=== PATIENT | female | born 1975 | race Hispanic/Latino ===

== ENCOUNTER 2019-09-13 12:26 | Inpatient (IN) | payer SELFPAY ==
[2019-09-13 13:07] LABS: #Basophils 0.1 thou/uL (0.0-0.2); #Eosinphils 0.2 thou/uL (0.0-0.7); #Lymphocytes 2.2 thou/uL (1.20-3.40); #Monocytes 0.9 thou/uL (0.11-0.59); #Neutrophils 6.8 thou/uL (1.40-6.50); %Eosinophils 2.3 % (0.0-10.0); %Lymphocytes 21.6 % (21.0-51.0); %Monocytes 8.6 % (0.0-10.0); %Neutrophils 66.5 % (42.0-75.0); Hemoglobin 7.4 g/dL (12.0-16.0); Mean Corpuscular HGB CONC 33.3 g/dL (32.0-36.0); Mean Corpuscular Hemoglobin 30.3 pg (27.0-31.0); Mean Corpuscular Volume 91.1 fL (78.0-98.0); Mean Platelet Volume 6.5 fL (7.4-10.4); Platelet Count 495 thou/uL (130-400); Red Blood Cell (RBC) Count 2.43 mill/uL (4.20-5.40); White Blood Cell (WBC) Count 10.2 thou/uL (4.8-10.8)
[2019-09-13] MEDS ORDERED: Ondansetron PF 4 MG/2 ML Vial ONE (13:21)
[2019-09-13] MEDS ORDERED: Morphine 4 MG/ML VIAL ONE (13:22)
[2019-09-13 13:29] LABS: ALT (SGPT) 24 U/L (8-55); AST (SGOT) 21 U/L (5-34); Albumin 4.2 g/dL (3.5-5.0); Alkaline Phosphatase 111 U/L (40-110); Anion Gap 12 mmol/L (10-20); BUN (Urea Nitrogen) 7 mg/dL (7.0-18.7); Bilirubin, Total 0.6 mg/dL (0.2-1.2); Calc. Creatinine Clearance 0 mL/min (70-130); Calcium 9.2 mg/dL (7.8-10.44); Carbon Dioxide 27 mmol/L (22-29); Chloride 103 mmol/L (98-107); Estimated GFR-MDRD 77; Globulin 3.1 g/dL (2.4-3.5); Glucose 95 mg/dL (70-105); Lipase 7 U/L (8-78); Potassium 4.1 mmol/L (3.5-5.1); Protein, Total 7.3 g/dL (6.0-8.3); Sodium 138 mmol/L (136-145)
--- NOTE | 2019-09-13 13:41 | PDOC.FPRHP ---
- History of Present Illness Chief Complaint: Bleeding rectum and dizziness History of Present Illness: Ms. Her is a previously healty 44 yo , Frisian-speaking only, female who presents to the ED for 25 days of bright red blood per rectum and known anemia. She has seen several doctors for this is in the past month in [place] and had colonoscopy scheduled, however for financial reasons was unable to have it done. She states that one of the doctors she saw did an X-ray and it showed "retained stool" and for that she was prescribed Amoxicillin and Prednisone. Today she felt dizzy in the shower and fell. She states she has been dizzy for the past three days and has had palpitations and shortness of breath. She states she has no other known medical conditions. ED Course: Morphine, Zofran and 1L NS. Type and screened for blood products - Allergies/Adverse Reactions Allergies Allergy/AdvReac Type Severity Reaction Status Date / Time No Known Allergies Allergy Verified 09/13/19 16:09 - History PMHx: Asthma PSHx: None FHx: Father - , colon cancer (dx age 65) Social: Denies tobacco, alcohol, and illicit drug use. - Review of Systems General: reports: fatigue. denies: fever/chills, weight/appetite/sleep changes Eyes: denies: eye pain, vision changes ENT: denies: nasal congestion, rhinorrhea Respiratory: reports: shortness of breath. denies: cough, congestion Cardiovascular: reports: palpitation. denies: chest pain, edema Gastrointestinal: reports: nausea, GI bleeding. denies: vomiting, diarrhea, constipation, abdominal pain Genitourinary: denies: incontinence, dysuria, polyuria Skin: denies: rashes, lesions Musculoskeletal: denies: pain, tenderness Neurological: reports: weakness. denies: numbness, syncope Psychological: denies: anxiety, depression - Vital signs BP: 121/88 HR:100 RR: 17 Tmax: 98.6 Pox: 96% on RA Wt: 86.2kg - Physical Exam Constitutional: NAD, awake, alert and oriented, well developed HEENT: normocephalic and atraumatic, PERRLA, EOMI, conjunctiva clear, grossly normal vision, grossly normal hearing, MMM -HEENT: pale skin and conjunctiva Neck: supple, FROM, trachea midline Chest: no-tender to palpation Heart: normal S1/S2, no murmurs/rubs/gallops, pulses present, no edema -Heart: tachycardic Lungs: CTAB, no respiratory distress, good air movement, no rales/rhonchi, no wheezing Abdomen: soft, non-tender, bowel sounds present -Abdomen: Rectal exam reveals multiple small to medium sized hemorrhoids, no gross bleeding. Disproportionately tender to palpation. Musculoskeletal: normal structure, normal tone Neurological: no focal deficit, CN II-XII intact, normal sensation Skin: no rash/lesions, good turgor Heme/Lymphatic: no unusual bruising or bleeding, no purpura, no petechia, no LAD Psychiatric: normal mood and affect, good judgment and insight, intact recent and remote memory FMR H&P: Results - Labs Result Diagrams: 09/13/19 12:49 09/13/19 12:49 Lab results: WBC 10.2 thou/uL (4.8-10.8) 09/13/19 12:49 Hgb 7.4 g/dL (12.0-16.0) L 09/13/19 12:49 Hct 22.1 % (36.0-47.0) L 09/13/19 12:49 MCV 91.1 fL (78.0-98.0) 09/13/19 12:49 Plt Count 495 thou/uL (130-400) H 09/13/19 12:49 Neutrophils % 66.5 % (42.0-75.0) 09/13/19 12:49 Sodium 138 mmol/L (136-145) 09/13/19 12:49 Potassium 4.1 mmol/L (3.5-5.1) 09/13/19 12:49 Chloride 103 mmol/L (98-107) 09/13/19 12:49 Carbon Dioxide 27 mmol/L (22-29) 09/13/19 12:49 BUN 7 mg/dL (7.0-18.7) 09/13/19 12:49 Creatinine 0.81 mg/dL (0.6-1.1) 09/13/19 12:49 Glucose 95 mg/dL (70-105) 09/13/19 12:49 Calcium 9.2 mg/dL (7.8-10.44) 09/13/19 12:49 Total Bilirubin 0.6 mg/dL (0.2-1.2) 09/13/19 12:49 AST 21 U/L (5-34) 09/13/19 12:49 ALT 24 U/L (8-55) 09/13/19 12:49 Alkaline Phosphatase 111 U/L (40-110) H 09/13/19 12:49 Serum Total Protein 7.3 g/dL (6.0-8.3) 09/13/19 12:49 Albumin 4.2 g/dL (3.5-5.0) 09/13/19 12:49 Lipase 7 U/L (8-78) L 09/13/19 12:49 FMR H&P: A/P - Problem List (1) Symptomatic anemia Current Visit: Yes Status: Acute Code(s): D64.9 - ANEMIA, UNSPECIFIED (2) Hemorrhoids Current Visit: Yes Status: Acute Code(s): K64.9 - UNSPECIFIED HEMORRHOIDS - Plan Symptomatic anemia 2/2 to lower GI bleed - Hb 7.4. History of profuse bleeding, tachycardia, dyspnea, and palpitations. Recommend 1u PRBC, however she has declined. Will monitor and reevaluate CBC in the AM. Will discuss transfusion again in the morning. - Iron studies and coags pending - Will continue IV fluids, LR @ 125 - At this time it appears that her bleeding source is the hemorrhoids. She does not appear to have an upper GI bleed, as she has not had melenic stools. She does not appear to have diverticulitis as her abdomen is non-tender, normal WBC , and normal appetite / bowel movements. - Was scheduled for colonoscopy, and fam hx positive for colon cancer. Will consult GI , appreciate recommendations. Thrombosed hemorrhoid - Exquisitely tender external hemorrhoids. C/o BRB per rectum. Had hemorrhoids in the past with . - Will consult Gen Surg for management. Disposition/LOS: Dispo: Stable VTE: SCDs Diet: clear liquid Code: Full FMR H&P: Upper Level - Pertinent history 44 yo F here with complaint of falling in the shower this morning. She has had 1 month of BRBPR. She was seen by her PCP in [place] who got her scheduled with GI for colonoscopy there, however she did not follow up due to financial concerns. She was also given topical steroids for hemorrhoids. For the past 3 days she has experienced increasing dizziness until today when she had a syncopal episode. At some point she was given oral prednisone and amoxicillin for an unknown dx. In the ER she was found to have a Hb of 7.4. Pulse was in the 90s, BP was WNL. PMHx Asthma Surgical Hx none Social Hx No etoh, tobacco, or drugs. - Pertinent findings See applications intern note for full ROS, PE, vitals, and labs ROS General Denies fever or chills CV Complain of syncope and palpitation Resp Denies cough, wheeze, or increased work of breathing. GI Complains of BRBPR and rectal pain denies increased frequency or dysuria Neuro denies numbness or weakness PE General A&O x4, NAD HEENT NCAT CV RRR, no murmur Resp CTA b/l Abd Non tender, no guarding, no distension Rectal Multiple exquisitely tender external hemorrhoids Extremities no edema, equal pedal pulses Neuro no focal deficits, CN II-XII intact - Plan Date/Time: 09/13/19 0306 I, Oliver Lockhart DO, have evaluated this patient and agree with findings/plan as outlined by applications intern resident. Pertinent changes/additions are listed here. 1.Symptomatic anemia secondary to lower GI bleed -Given physical exam, it seems most likely that she has blood loss from external hemorrhoids that are now thrombosed. At this time it seems reasonable to give 1u PRBC, however pt declines transfusion. -Will continue IV fluid bolus, discuss transfusion again in the morning -Monitor CMP -Though she does have a GI consult pending outpt, will have general surgery see pt to evaluate for possible hemorrhoidectomy -Check coags 2.Thrombosed hemorrhoid -As above Diet Regular Code Full PPX SCD Addendum - Attending - Attending Attestation Date/Time: 09/13/19 4334 I personally evaluated the patient and discussed the management with Dr. Camp I agree with the History, Examination, Assessment and Plan documented above with any addition or exceptions noted below 44 yo SSO female presents to ER with symptomatic anemia rectal bleeding for last several months. Patient interviewed with assistance of plastics engineering teacher.Patient previously evaluated by PCP from [facility] [place] and recommended colonoscopy. Patient also seen at [facility] and hemorrhoid cream prescribed. Patient also with significant heavy menses most likely contributing to her anemia. Patient relates several years of heavy menses most recent LMP Sep 02 had 5 days heavy flow wearing two pads at a time and changing pads as often as every 2 hours. PMHX Father with Colon CA patient with asthma in the past exam pulse 90s alert NAD abdomen slight tender LLQ. Not able to perform rectal exam secondary extreme pain no ext hemorrhoids appreciated no bleeding seen. Patient declined rbc transfusion discussed if further decline or symptoms she would benefit from receiving blood.
[2019-09-13] MEDS ORDERED: Ondansetron ODT 4 MG TAB PO PRN (14:46)
[2019-09-13] MEDS ORDERED: Bisacodyl 5 MG TAB PO PRN (14:46)
[2019-09-13 15:07] LABS: Bilirubin Negative (Negative); Blood, Urine Negative (Negative); Clarity Clear (Clear); Glucose, Urine (Dipstick) Normal (Negative); Leukocyte Negative Leu/uL (Negative); Nitrite Negative (Negative); Protein, Urine (Dipstick) Negative (Neg-Trace); Urobilinogen Normal mg/dL (Less than 2)
[2019-09-13] MEDS ORDERED: Morphine 2 MG/ML SYRINGE SLOW IVP PRN (15:38)
[2019-09-13 15:44] LABS: Pregnancy Test - Urine (BHCG) Negative (Negative); Pregu Control Background? CLEAR/WHITE (CLR/WHITE); Pregu Control Bar Appear? YES (CONTROL BAR); Specific Gravity 1.008 (1.002-1.036)
[2019-09-13] MEDS: Lactated Ringer's 1,000 ML IV SCH (15:56)
[2019-09-13] MEDS: Acetaminophen 325 MG TAB PO PRN ×2 (15:57→23:00)
[2019-09-13] MEDS: traMADol HCl 50 MG TAB PO PRN (16:00)
[2019-09-13 16:19] VITALS: BMI 35.1
[2019-09-13] MEDS ORDERED: GoLYTELY 4,000 ml Bottle PO SCH (17:45)
[2019-09-13 18:11] LABS: INR-International Normal Ratio 1.1; PTT 28.6 SEC (22.9-36.1); Prothrombin Time 14.3 SEC (12.0-14.7)
[2019-09-13 21:55] LABS: Hemoglobin 6.3 g/dL (12.0-16.0); Mean Corpuscular HGB CONC 32.7 g/dL (32.0-36.0); Mean Corpuscular Volume 91.9 fL (78.0-98.0); Mean Platelet Volume 6.4 fL (7.4-10.4); Platelet Count 419 thou/uL (130-400); RBC Distribution Width 13.2 % (11.5-14.5); Red Blood Cell (RBC) Count 2.09 mill/uL (4.20-5.40); White Blood Cell (WBC) Count 8.8 thou/uL (4.8-10.8)
[2019-09-14] MEDS: Lactated Ringer's 1,000 ML IV SCH ×4 (00:08→20:25)
--- NOTE | 2019-09-14 01:27 | CON ---
DATE OF CONSULTATION: 09/13/2019 CHIEF COMPLAINT: Blood in the stool and weakness. HISTORY OF PRESENT ILLNESS: Ms. Her is a 44-year-old woman, who presented to the emergency room with hematochezia and anemia. She had previously passed out associated with this. She has had bleeding over the last few months and has about one bowel movement per day. She has to strain a lot at the stools, but they are not hard or runny. She has red blood that turns a water red with every bowel movement. She also has had pretty heavy menstrual periods and has 5-day periods once per month. She has had no nausea or vomiting with this. No obvious diarrhea, but has had some mild constipation with straining at stools. She has had some left lower quadrant pressure type pain intermittently as well. She has more severe pain at the anal opening with passing stools. This pain lasts for minutes or longer after bowel movements. PAST MEDICAL HISTORY: Asthma. PAST SURGICAL HISTORY: Negative. FAMILY HISTORY: Her father was diagnosed with colon cancer around age 65. SOCIAL HISTORY: No alcohol, tobacco, or drugs. ALLERGIES: NO KNOWN DRUG ALLERGIES. MEDICATIONS: Prior to admission, none. REVIEW OF SYSTEMS: Negative x10 systems reviewed, except as stated in the history of present illness. PHYSICAL EXAMINATION: VITAL SIGNS: Temperature 97.8, pulse 78, blood pressure 114/71. GENERAL: She is in no acute distress. Alert and oriented x3. HEENT: Eyes have no scleral icterus. Oropharynx is clear without lesions. No cervical or supraclavicular lymphadenopathy. She is very pale. LUNGS: Clear to auscultation bilaterally. HEART: Regular rate and rhythm without murmur. ABDOMEN: Soft, nontender, and nondistended. Bowel sounds are present. EXTREMITIES: No lower extremity edema. RECTAL: She has severe pain just with spreading the gluteal cleft apart. She has a few skin tags in the area, but no thrombosed hemorrhoid. She likely has an anal fissure in this area; however, I cannot directly visualize one. Nothing else would cause this type of symptom likely on exam. I did not do full digital exam in anticipation that I will be doing a sedated exam tomorrow. She was brought to tears with just spreading the gluteal cleft apart. She has no sign of abscess in the area. LABORATORY DATA: White blood cell count 10.2, hemoglobin 7.4, MCV 91, platelets 495. Creatinine 0.81. Bilirubin 0.6, AST 21, ALT 24, alkaline phosphatase 111, albumin 4.2, lipase 7. IMPRESSION: 1. Hematochezia with chronic bleeding from the rectum associated with painful bowel movements. This will require colonoscopy to investigate further. 2. Family history of colon cancer in her father. 3. Anal fissure. RECOMMENDATIONS: 1. Plan colonoscopy for tomorrow. 2. If fissures confirmed by exam after receiving propofol tomorrow, then to be treated with MiraLAX daily and nitroglycerin ointment twice daily. 3. Of note, she did see a telephone engineer recently and was told that she had to lose weight prior to scheduling the colonoscopy. I suspect there is some issue with language barrier in this instance and it is more likely that it was a cost issue as the patient is uninsured. Either way, we will plan to proceed with colonoscopy tomorrow. Job ID: [id number]
[2019-09-14] MEDS: traMADol HCl 50 MG TAB PO PRN ×3 (03:56→18:15)
--- NOTE | 2019-09-14 05:46 | PDOC.FM ---
- Subjective Subjective: Mrs. Her was resting comfortably in her bed at the time of evaluation. She is Mohawk-speaking only, and admitted to mild dizziness during ambulation and continued rectal pain during the evening, with bright red blood in her stool x2. Otherwise, she was asymptomatic and denied chest pain, shortness of breath or N/V. - Objective Vital Signs & Weight: Vital Signs (12 hours) Temp Pulse Pulse Resp BP BP Pulse Ox 09/14/19 04:08 97.7 F 80 18 111/72 98 09/14/19 02:50 97.9 F 83 16 110/72 99 09/14/19 01:25 106/71 09/14/19 00:21 98.5 F 81 16 94/61 98 09/13/19 23:58 98.3 F 90 16 102/69 98 09/13/19 23:41 98.0 F 98 20 109/62 100 09/13/19 20:00 98 09/13/19 19:06 98.0 F 78 16 104/68 98 Weight Weight 84.368 kg I&O: 09/12/19 09/13/19 09/14/19 07:59 06:59 06:59 Intake Total 350 Balance 350 Result Diagrams: 09/14/19 06:38 09/14/19 06:38 Phys Exam - Physical Examination Constitutional: NAD HEENT: PERRLA, sclera anicteric, oral pharynx no lesions Neck: no nodes, supple, full ROM Respiratory: no wheezing, no rales, no rhonchi, clear to auscultation bilateral Cardiovascular: RRR, no rub Gastrointestinal: soft, non-tender, no distention Several skin tags noted in perirectal area, no signs of active bleeding Musculoskeletal: no edema, pulses present Neurological: non-focal, moves all 4 limbs Lymphatic: no nodes Psychiatric: normal affect Deviation from normal: Pallor Dx/Plan - Plan Plan: 1. Symptomatic Anemia, likely 2/2 to Lower GI Bleed -Inability to obtain appropriate care in light of known GI bleed is concerning -H.9 s/p 1UPRBCs -Iron Studies: Pending -PT: 14.3 / APTT: 28.6 / INR: 1.1 -LR @ 125 ml/hr -GI Consult: Colonoscopy planned for 09/14 2. Thrombosed External Hemorrhoid vs. Anal Fissure -Exquisitely tender w/ BRBRP -Previously had hemorrhoids in the past with -GI: Consulted, currently following - likely anal fissure -Consider violeta-rectal US if colonoscopy inconclusive in order to r/o violeta- rectal abscess 3. AUB -Patient complains of extremely heavy menstrual periods that last 5 days - may be contributing to current anemia -Consider TVUS to evaluate further evaluate Code: Full Diet: Clear Liquid Activity: Ambulate w/ Assist DVT PPx: Not Required Dispo: Patient is currently stable on Medical Floor. Await additional recommendations from GI following colonoscopy. Expected LOS > 48H
[2019-09-14 06:49] LABS: #Eosinphils 0.2 thou/uL (0.0-0.7); #Lymphocytes 2.2 thou/uL (1.20-3.40); #Monocytes 0.6 thou/uL (0.11-0.59); #Neutrophils 5.1 thou/uL (1.40-6.50); %Basophils 0.4 % (0.0-1.0); %Eosinophils 2.6 % (0.0-10.0); %Lymphocytes 26.9 % (21.0-51.0); %Monocytes 7.4 % (0.0-10.0); %Neutrophils 62.8 % (42.0-75.0); Hemoglobin 7.9 g/dL (12.0-16.0); Mean Corpuscular HGB CONC 33.1 g/dL (32.0-36.0); Mean Corpuscular Hemoglobin 30.1 pg (27.0-31.0); Mean Corpuscular Volume 90.8 fL (78.0-98.0); Mean Platelet Volume 6.6 fL (7.4-10.4); Platelet Count 419 thou/uL (130-400); RBC Distribution Width 13.4 % (11.5-14.5); Red Blood Cell (RBC) Count 2.62 mill/uL (4.20-5.40); White Blood Cell (WBC) Count 8.1 thou/uL (4.8-10.8)
[2019-09-14 07:07] LABS: ALT (SGPT) 19 U/L (8-55); AST (SGOT) 15 U/L (5-34); Albumin 3.7 g/dL (3.5-5.0); Alkaline Phosphatase 98 U/L (40-110); Anion Gap 12 mmol/L (10-20); BUN (Urea Nitrogen) 4 mg/dL (7.0-18.7); Bilirubin, Total 0.7 mg/dL (0.2-1.2); Calc. Creatinine Clearance 133 mL/min (70-130); Calcium 8.3 mg/dL (7.8-10.44); Carbon Dioxide 26 mmol/L (22-29); Chloride 102 mmol/L (98-107); Estimated GFR-MDRD 88; Globulin 2.6 g/dL (2.4-3.5); Glucose 102 mg/dL (70-105); Potassium 3.7 mmol/L (3.5-5.1); Protein, Total 6.3 g/dL (6.0-8.3); Sodium 136 mmol/L (136-145)
[2019-09-14] MEDS ORDERED: Polyethylene Glycol 3350 17 GM Packet PO SCH (12:15)
--- NOTE | 2019-09-14 14:04 | OP ---
DATE OF PROCEDURE: 09/14/2019 PROCEDURE PERFORMED: Colonoscopy. PREOPERATIVE DIAGNOSES: 1. Hematochezia. 2. Anal pain. 3. Iron-deficiency anemia. DESCRIPTION OF PROCEDURE: Informed consent was obtained from the patient. She was sedated with total intravenous anesthesia. The rectal exam was performed and revealed a posterior anal fissure and skin tag. The fissure was shallow. The colonoscope was advanced to the terminal ileum without difficulty. The mucosa of the terminal ileum was normal. The ileocecal valve and appendiceal orifice were clearly identified. The preparation quality was excellent. The colonic mucosa was normal throughout. Retroflexed views in the rectum were normal. IMPRESSION: 1. Posterior anal fissure and skin tag. This is the source for her hematochezia and anal pain. 2. Otherwise normal colonoscopy to the terminal ileum. 3. Her anemia is most likely secondary to menorrhagia. RECOMMENDATIONS: 1. MiraLAX 17 g daily. 2. Nitroglycerin ointment twice daily for a month. 3. Repeat colonoscopy in 5 years due to family history of colon cancer in her father. 4. Follow up in GI Clinic in 1 month. 5. Iron supplementation. 6. I will add her on for EGD for tomorrow to complete the GI evaluation in light of her severe iron-deficiency anemia and potential need for a gynecological followup. Job ID: [id number]
[2019-09-14] MEDS ORDERED: PROPOFOL 200 MG/20 ML VIAL ONE (14:38)
--- NOTE | 2019-09-14 15:14 | PRG ---
DATE OF SERVICE: 09/14/2019 Ms. Her has been admitted with a significant lower GI bleed. Her admission hemoglobin was 6.3, and she was transfused to a 7.4. She has been seen by the GI Service who would take her for colonoscopy later today. Job ID: [id number]
--- NOTE | 2019-09-14 16:23 | EKG ---
Test Reason : Blood Pressure : / mmHG Vent. Rate : 085 BPM Atrial Rate : 085 BPM P-R Int : 142 ms QRS Dur : 082 ms QT Int : 380 ms P-R-T Axes : 048 017 039 degrees QTc Int : 452 ms Normal sinus rhythm Normal ECG No previous ECGs available Confirmed by DR. Carlos A WILDE ([id number]) on 09/14/2019 4:23:08 PM Referred By: STEVEN Confirmed By:DR. Carlos A WILDE
[2019-09-15] MEDS: Lactated Ringer's 1,000 ML IV SCH ×2 (03:49→17:43)
[2019-09-15] MEDS: traMADol HCl 50 MG TAB PO PRN ×3 (05:00→22:14)
--- NOTE | 2019-09-15 06:12 | PDOC.FM ---
- Subjective Subjective: Ms. Her denied any overnight events such as chest pain, shortness of breath , headaches or N/V. However, she did have an additional stool that was grossly bloody and continues to have extreme pain in her violeta-rectal region. - Objective Vital Signs & Weight: Vital Signs (12 hours) Temp Pulse Resp BP Pulse Ox 09/15/19 04:00 98 F 100 20 146/82 H 99 09/14/19 20:26 98.2 F 75 18 130/88 97 09/14/19 20:00 97 Weight Admit Weight 84.368 kg Weight 84.368 kg I&O: 09/13/19 09/14/19 09/15/19 06:59 06:59 06:59 Intake Total 5475 1979 Balance 5475 1979 Result Diagrams: 09/15/19 06:15 09/14/19 06:38 Phys Exam - Physical Examination Constitutional: NAD HEENT: PERRLA, moist MMs, sclera anicteric, oral pharynx no lesions Neck: no nodes, full ROM Respiratory: no wheezing, no rales, no rhonchi, clear to auscultation bilateral Cardiovascular: RRR, no significant murmur, no rub Gastrointestinal: soft, non-tender, no distention No visible fissures. Extreme TTP at external hemorrhoid at 12 o'clock. Musculoskeletal: no edema, pulses present Neurological: non-focal, moves all 4 limbs Lymphatic: no nodes Psychiatric: normal affect Skin: no rash Dx/Plan - Plan Plan: 1. Symptomatic Anemia, likely 2/2 to Lower GI Bleed and AUB -Inability to obtain appropriate care in light of known GI bleed is concerning -H.8 on 09/14 -Iron Studies: Pending -PT: 14.3 / APTT: 28.6 / INR: 1.1 -LR @ 125 ml/hr -GI Consult: Colonoscopy on 09/14 revealed only anal fissures 2. Anal Fissure / Thrombosed External Hemorrhoid -Exquisitely tender violeta-rectal area w/ BRBRP -Previously had hemorrhoids with past -GI: Consulted, currently following - likely anal fissure -Colonoscopy performed on 09/14 - GI noted bleeding likely 2/2 to anal fissures -Consider adjunctive methods for bowel prep and pain control -Consider Surgery consult for suspicion of thrombosed hemorrhoid 3. AUB -Patient complains of extremely heavy menstrual periods that last 5 days - may be contributing to current anemia -Consider TVUS to evaluate further evaluate -Will need f/u in outpatient setting Code: Full Diet: Clear Liquid Activity: Ambulate w/ Assist DVT PPx: Not Required Dispo: Patient is currently stable on Medical Floor. Lack of insurance continues to be problematic. Expected LOS < 24H Addendum - Attending - Attending Attestation Date/Time: 09/15/19 4727 I personally evaluated the patient and discussed the management with Dr. Luna I agree with the History, Examination, Assessment and Plan documented above with any addition or exceptions noted below - Patient c/o perianal pain and discomfort. NPO for EGD today. Afebrile VSS. A/P: 1) Hematochezia -secondary to anal fissures; appreciate GI's assistance and recommendations. Start NTG ointment and miralax. Plan for EGD today to complete the workup for the anemia. 2) AUB - will check pelvic USG. 3) Anemia -H/H stable; will give iron infusion.
[2019-09-15 06:25] LABS: #Eosinphils 0.2 thou/uL (0.0-0.7); #Lymphocytes 1.9 thou/uL (1.20-3.40); #Monocytes 0.6 thou/uL (0.11-0.59); #Neutrophils 4.6 thou/uL (1.40-6.50); %Basophils 0.5 % (0.0-1.0); %Eosinophils 3.3 % (0.0-10.0); %Lymphocytes 26.1 % (21.0-51.0); %Monocytes 7.6 % (0.0-10.0); %Neutrophils 62.5 % (42.0-75.0); Hemoglobin 7.8 g/dL (12.0-16.0); Mean Corpuscular HGB CONC 32.9 g/dL (32.0-36.0); Mean Corpuscular Hemoglobin 29.8 pg (27.0-31.0); Mean Corpuscular Volume 90.8 fL (78.0-98.0); Mean Platelet Volume 6.6 fL (7.4-10.4); Platelet Count 401 thou/uL (130-400); RBC Distribution Width 13.2 % (11.5-14.5); Red Blood Cell (RBC) Count 2.61 mill/uL (4.20-5.40); White Blood Cell (WBC) Count 7.4 thou/uL (4.8-10.8)
[2019-09-15] MEDS: Polyethylene Glycol 3350 17 GM Packet PO SCH (10:19)
[2019-09-15] MEDS ORDERED: PROPOFOL 200 MG/20 ML VIAL ONE ×2 (11:56→11:57)
[2019-09-15] MEDS ORDERED: Rocuronium Bromide 10 MG/ML (10ML VIAL) ONE (11:57)
[2019-09-15] MEDS ORDERED: Dexamethasone 20 MG/5 ML VIAL ONE (11:57)
[2019-09-15] MEDS ORDERED: Glycopyrrolate 0.2 MG/ML 5 ML SYRINGE ONE (11:57)
[2019-09-15] MEDS ORDERED: ePHEDrine/0.9% NaCl/PF SYRINGE 50 mg/10 ml ONE (11:57)
[2019-09-15] MEDS ORDERED: Ondansetron PF 4 MG/2 ML Vial ONE (11:57)
[2019-09-15] MEDS ORDERED: diphenhydrAMINE 50 MG/ML VIAL ONE (11:57)
[2019-09-15] MEDS ORDERED: PHENYLEPHRINE-NS 100 MCG/ML 10 ML SYRINGE ONE (11:57)
[2019-09-15] MEDS: Nitroglycerin 2% Ointment 1 INCH/1 GM Packet TOP SCH (14:09)
[2019-09-15 14:30] LABS: Iron 27 ug/dL (50-170); Iron Binding Capacity, Total 415 mcg/dL (265-497)
--- NOTE | 2019-09-15 15:32 | ULT ---
Transabdominal pelvic ultrasound INDICATION: Abnormal uterine bleeding TECHNIQUE: Grayscale, color Doppler imagesand spectral doppler images were obtained of the pelvis via transabdominal approach only. FINDINGS: Uterus: 7.4 x 3.8 x 4.8 cm . Endometrial stripe measured 4.9 mm which is within normal limits for p remenopausal female Right adnexa: 3.4 x 2.1 x 2.4 cm. There is a 3 cm cyst within the right ovary. There is normal jarvis w to the right ovary. Left adnexa: 2.1 x 1.6 x 1.8 cm. The left ovary is normal appearing with normal flow. Free fluid: None present. Additional findings: None. IMPRESSION: 1. Normal appearance to the uterus. Endometrial stripe of 4.9 mm is within normal limits for premenop ausal female. 2. Right ovarian cyst measuring 3 cm. A follow-up ultrasound in 6-8 weeks may be helpful to document resolution.
[2019-09-15] MEDS: Acetaminophen 325 MG TAB PO PRN (16:26)
--- NOTE | 2019-09-15 16:43 | OP ---
DATE OF PROCEDURE: 09/15/2019 PREPROCEDURE DIAGNOSES: 1. History of hematochezia. 2. Iron deficiency anemia. 3. Recent normal colonoscopy. POSTPROCEDURE DIAGNOSIS: Normal esophagogastroduodenoscopy. ANESTHESIA: TIVA. PROCEDURE IN DETAIL: After the patient was informed of the risks, benefits, and possible complication of endoscopy including complications of bleeding, perforation, reaction to medication, and aspiration, informed consent was obtained. The patient was brought to endoscopy suite, where she was sedated in gradual fashion. Once she was comfortable, a bite block was placed inside the orifice. The endoscope was advanced into the esophagus, stomach, and second and third portions of the duodenum and was slowly removed. There was good visualization of the mucosa. There were no mass lesions or AV malformations. There was no bleeding sites identified. There was no evidence of scalloping of duodenal fold. Retroflexed views in the stomach were normal. The scope was removed. The patient tolerated the procedure well. There were no complications. Job ID: [id number]
[2019-09-15] MEDS ORDERED: Acetaminophen 500 MG TAB PO PRN (17:32)
[2019-09-15] MEDS ORDERED: Iron Sucrose Complex 500 MG in Sodium Chloride 0.9% 250 ML 250 ML IVPB SCH ×2 (17:32→22:00)
[2019-09-16] MEDS: Acetaminophen 325 MG TAB PO PRN (02:38)
[2019-09-16] MEDS: Lactated Ringer's 1,000 ML IV SCH ×2 (02:39→05:40)
[2019-09-16] MEDS: Nitroglycerin 2% Ointment 1 INCH/1 GM Packet TOP SCH (02:39)
[2019-09-16] MEDS: traMADol HCl 50 MG TAB PO PRN (05:39)
--- NOTE | 2019-09-16 07:54 | PDOC.FM ---
- Subjective Subjective: Ms. Her was resting comfortably with her parents by her bedside at the time of evaluation. She denied any acute overnight events, particularly with regard to her recent iron infusion. Otherwise, she had no acute episodes of headaches, chest pain, changes in vision, nausea, vomitin or, abdominal pain. - Objective Vital Signs & Weight: Vital Signs (12 hours) Temp Pulse Resp BP Pulse Ox 09/16/19 04:00 98.7 F 86 18 115/78 94 L 09/15/19 20:00 97.6 F 79 18 107/71 97 Weight Admit Weight 84.368 kg Weight 84.368 kg I&O: 09/15/19 09/16/19 09/17/19 06:59 06:59 06:59 Intake Total 1979 1799 Balance 1979 1799 Result Diagrams: 09/16/19 07:58 09/16/19 07:58 Phys Exam - Physical Examination Constitutional: NAD HEENT: PERRLA, moist MMs, sclera anicteric, oral pharynx no lesions Neck: supple, full ROM Respiratory: no wheezing, no rales, no rhonchi, clear to auscultation bilateral Cardiovascular: RRR, no significant murmur, no rub Gastrointestinal: soft, non-tender, no distention Musculoskeletal: no edema, pulses present Neurological: non-focal, moves all 4 limbs Psychiatric: normal affect Deviation from normal: Great improvement of pallor. Dx/Plan - Plan Plan: 1. Symptomatic Anemia, likely 2/2 to Lower GI Bleed and AUB -Inability to obtain appropriate care in light of known GI bleed is concerning -H.8 on 09/15 -Ferritin: 18 -PT: 14.3 / APTT: 28.6 / INR: 1.1 -LR @ 125 ml/hr -GI Consult: Colonoscopy on 09/14 revealed only anal fissures, EGD on 09/15 revealed NAF 2. Anal Fissure -Exquisitely tender violeta-rectal area w/ BRBRP -Previously had hemorrhoids with past -Colonoscopy performed on 09/14 - GI noted bleeding likely 2/2 to anal fissures -Consider adjunctive methods for bowel prep and pain control 3. AUB -Patient complains of extremely heavy menstrual periods that last 5 days - likely contributing to current anemia -TVUS: Endometrial Stripe 4.9mm, Right Ovarian Cyst 3cm -Will need f/u in outpatient setting - EMB? Code: Full Diet: Clear Liquid Activity: Ambulate w/ Assist DVT PPx: Not Required Dispo: Patient is currently stable on Medical Floor. Lack of insurance continues to be problematic. Consider DC today w/ close follow-up in outpatient setting to address AUB. Expected LOS < 24 Addendum - Attending - Attending Attestation Date/Time: 09/16/19 5860 I personally evaluated the patient and discussed the management with Dr. Luna I agree with the History, Examination, Assessment and Plan documented above with any addition or exceptions noted below- Patient denies complaints. Still having some anal disconfort; states that pain is better; having itching. Afebrile VSS. A/P: 1) Anal fissures- cotnineu NTG ointment. 2) Anema- most likely secondary to AUB. EGD and colonoscopy negative. H/H stable; plan to d/c home and continue evaluation as outpatient.
[2019-09-16 08:09] VITALS: BP 162/79; TEMP 98.3
[2019-09-16 08:18] LABS: #Basophils 0.1 thou/uL (0.0-0.2); #Eosinphils 0.2 thou/uL (0.0-0.7); #Lymphocytes 1.7 thou/uL (1.20-3.40); #Monocytes 0.4 thou/uL (0.11-0.59); #Neutrophils 6.8 thou/uL (1.40-6.50); %Basophils 0.7 % (0.0-1.0); %Lymphocytes 18.8 % (21.0-51.0); %Monocytes 4.7 % (0.0-10.0); %Neutrophils 73.8 % (42.0-75.0); Hemoglobin 9.2 g/dL (12.0-16.0); Mean Corpuscular HGB CONC 31.8 g/dL (32.0-36.0); Mean Corpuscular Hemoglobin 29.4 pg (27.0-31.0); Mean Corpuscular Volume 92.3 fL (78.0-98.0); Mean Platelet Volume 7.1 fL (7.4-10.4); Platelet Count 407 thou/uL (130-400); RBC Distribution Width 13.3 % (11.5-14.5); Red Blood Cell (RBC) Count 3.15 mill/uL (4.20-5.40); White Blood Cell (WBC) Count 9.3 thou/uL (4.8-10.8)
[2019-09-16] MEDS ORDERED: AQUAPHOR TOP SCH (09:00)
[2019-09-16] MEDS ORDERED: NITROGLYCERIN TOP SCH (09:00)
[2019-09-16 09:04] LABS: ALT (SGPT) 18 U/L (8-55); AST (SGOT) 15 U/L (5-34); Albumin 3.9 g/dL (3.5-5.0); Alkaline Phosphatase 103 U/L (40-110); Anion Gap 15 mmol/L (10-20); BUN (Urea Nitrogen) 6 mg/dL (7.0-18.7); Bilirubin, Total 0.6 mg/dL (0.2-1.2); Calc. Creatinine Clearance 126 mL/min (70-130); Calcium 9.1 mg/dL (7.8-10.44); Carbon Dioxide 24 mmol/L (22-29); Chloride 103 mmol/L (98-107); Estimated GFR-MDRD 83; Globulin 2.8 g/dL (2.4-3.5); Glucose 104 mg/dL (70-105); Potassium 3.9 mmol/L (3.5-5.1); Protein, Total 6.7 g/dL (6.0-8.3); Sodium 138 mmol/L (136-145)
[2019-09-16] MEDS: Polyethylene Glycol 3350 17 GM Packet PO SCH (09:38)
[2019-09-16] MEDS ORDERED: Ferrous Sulfate 325 MG TAB PO SCH ×2 (09:40→17:00)
--- NOTE | 2019-09-17 06:05 | DIS ---
DATE OF ADMISSION: 09/13/2019 DATE OF DISCHARGE: 09/16/2019 RESIDENT: Santy Luna MD. ADMITTING ATTENDING: Jl Reid MD. DISCHARGE ATTENDING: Ronna Blanca MD. CONSULTATIONS: 1. Dr. Albert Hernandez, Gastroenterology. 2. Dr. Adal Ferrer, Gastroenterology. 3. Dr. Santana Olmos, Cardiology. PROCEDURES: 1. Electrocardiogram read as normal sinus rhythm. 2. Colonoscopy, which was remarkable only for posterior anal fissures and skin tags. Otherwise, normal to the terminal ileum. 3. Esophagogastroduodenoscopy, which was unremarkable, specifically with regard to sources of possible bleeding. No masses or AV malformations noted. 4. Pelvic ultrasound remarkable for a normal-appearing uterus with an endometrial stripe of 4.9 mm, which was within normal limits for a premenopausal female as well as a right ovarian cyst measuring 3 cm. 5. Follow up in 6-8 weeks was recommended. PRIMARY DIAGNOSIS: Anal fissures. SECONDARY DIAGNOSES: 1. Abnormal uterine bleeding. 2. Symptomatic anemia. DISCHARGE MEDICATIONS: 1. Acetaminophen 650 mg p.o. q.4 hours. 2. Ferrous sulfate 325 mg p.o. b.i.d. 3. Medroxyprogesterone 2.5 mg p.o. daily. 4. Polyethylene glycol 17 g p.o. daily. 5. Nitro-Bid topical ointment 1 tube approximately 30 g. DISCONTINUED MEDICATIONS: 1. Lactated Ringer's. 2. Tramadol 50 mg p.o. q.6 hours. HISTORY OF PRESENT ILLNESS/HOSPITAL COURSE: Ms. Her is a 44-year-old Romansh-speaking only female who originally immigrated from [place], who presents to the ED after 25 days of bright red blood per rectum with known anemia. Per the patient, she has seen several doctors in the past for this in the [place] area and had a colonoscopy scheduled, but could not afford the aforementioned procedure and was unable to have it done. She stated that one of her doctors did an x-ray and showed "retained stool" and for that she was prescribed amoxicillin and prednisone. On the day of presentation, she felt dizzy and fell in the shower. She states that she felt dizzy for several days and also had had palpitations and shortness of breath. Per the patient, she had no other known medical problems. While hospitalized she received approximately 1 unit of packed red blood cells for her anemia. Additionally, her pain in her perirectal area was controlled with topical Nitro- Bid. Aggressive fluid resuscitation was initiated and her overall condition generally improved. She received both colonoscopy and EGD, mentioned elsewhere in this note. She also received a pelvic ultrasound, as mentioned elsewhere in this note. As the patient's condition began to improve, she was prepped for discharge and was instructed to continue to use her MiraLAX in order to soften her stools and decrease the amount of pain experienced when defecating. Additionally, she was instructed on the proper technique to use the Nitro-Bid topical ointment, also to reduce the amount of pain in her perirectal area. During the review of systems, the patient also admitted to extreme menorrhagia, bleeding for 5 days at a time and needing to change 2 pads every 2 hours in order to control her bleeding. This was problematic and the patient was instructed that she would need to follow up on this in an outpatient setting. PHYSICAL EXAMINATION: VITAL SIGNS: Prior to discharge, her vital signs were read as temperature 98.3 degrees, pulse of 80, respiratory rate 20 per minute, O2 saturation 96% on room air, blood pressure was 162/70. LABORATORY DATA: Indicated white blood cell count of 9.3, hemoglobin 9.2, hematocrit 29, platelet count 407. Chem panel revealed sodium 138, potassium 3.9, chloride 103, carbon dioxide 24, BUN 6, creatinine 0.76, glucose 104. Iron 27, total iron-binding capacity 415, percent iron saturation 7%, ferritin 18.33. Coagulation panel was read as PT 14.3, APTT 28.6, INR 1.1. Urinalysis was unremarkable and urine test was read as negative. DISPOSITION: Stable. DISCHARGE INSTRUCTIONS: Location: Home. Diet: Heart healthy. Activity: Ad farhana. Followup: The patient's lack of insurance will be difficult in her receiving appropriate care and she was instructed to follow up with her primary care provider or jail keeper should she experience any continued problems from the aforementioned anal fissures or continue to experience extreme blood loss during defecation. Additionally, her abnormal uterine bleeding is almost certainly contributing to her symptomatic anemia and as such, she was encouraged to follow up with either primary care provider or an [employer] in order to evaluate clinically. The patient was instructed that she may require endometrial biopsy and that she should follow up with the primary care provider or [employer] before making this decision. The patient was comfortable with this plan and was happy with the care that she received while in the hospital. Job ID: [id number] [email or web address]
--- NOTE | 2019-09-18 04:08 | PQF ---
Iker Her ANNA MD [id number] CLINICAL DOCUMENTATION CLARIFICATION FORM: POST DISCHARGE Addendum to original discharge summary date: ____ Late entry note date: __ DATE: 09/18/19 ATTN: Ronna Chopra Please exercise your independent, professional judgment in responding to the clarification form. Clinical indicators are provided on the bottom of this form for your review Please check appropriate box(s): [ ] Acute blood loss anemia [ x ] Chronic Anemia due to Blood loss [ ] Iron Deficiency Anemia [ ] Other diagnosis [ ] Unable to determine In addition, please specify: Present on Admission (POA): [ x ] Yes [ ] No [ ] Unable to determine For continuity of documentation, please document condition throughout progress notes and discharge summary. Thank You. CLINICAL INDICATORS - SIGNS / SYMPTOMS / LABS Family Medicine H&P p1 09/13 Dr Camp presents to the ED for 25 days of bright red blood per rectum and known anemia Family Medicine H&P p1 09/13 Dr Camp Today she felt dizzy in the shower and fell. She states she been dizzy for the pasr three days and has had palpitations and SOB. Family Medicine H&P p4 09/13 Dr Camp Hb 7.4. History of profuse bleeding, tachycardia, dypnea and palpitations RISK FACTORS Family Medicine H&P p4 09/13 Symptomatic Anemia 2/2 lower GI bleed Family Medicine H&P p4 09/13 Thrombosed hemorrhoid Operative note: Iron Deficiency Anemia TREATMENTS: Blood bank transfused 1Unit RBC MAR IV fluid Bolus Family Medicine H&P p4 09/13 Iron studies and Coags Colonoscopy performed 09/14 EGD performed 09/15 (This form is maintained as a part of the permanent medical record) 2014 [employer]. All Rights Reserved Christina [email or web address] [not provided] [email or web address]
== END 2019-09-16 17:33 | disposition home or self-care (01) | DRG 812 ==
LOC: ERS 12:26 → T4-A 13:38
PROVIDERS: ADMIT Family Medicine; ATTEND Family Medicine
PROC: 30233N1 Transfusion of Nonautologous Red Blood Cells into Peripheral Vein, Percutaneous Approach (ICD-10-PCS; principal; 2019-09-13)
PROC: 0DJD8ZZ Inspection of Lower Intestinal Tract, Via Natural or Artificial Opening Endoscopic (ICD-10-PCS; 2019-09-14)
PROC: 0DJ08ZZ Inspection of Upper Intestinal Tract, Via Natural or Artificial Opening Endoscopic (ICD-10-PCS; 2019-09-15)
DX: D50.0 Iron deficiency anemia secondary to blood loss (chronic) (principal); K60.2 Anal fissure, unspecified; N92.0 Excessive and frequent menstruation with regular cycle; J45.909 Unspecified asthma, uncomplicated; K64.5 Perianal venous thrombosis; K64.4 Residual hemorrhoidal skin tags
CPT/HCPCS: 36415; 36430; 76856; 80053; 81003; 81025; 82274; 82728; 83540; 83550; 83690; 85025; 85610; 85730; 86850; 86900; 86901; 87086; 93005; 93010; 96361; 96374; 96375; J1100; J1200; J1756; J2270; J2405; J2704; J7050; P9016

== ENCOUNTER 2020-02-19 14:29 | Inpatient (IN) | payer SELFPAY ==
[~2020-02-19 14:29] MED LIST: Iopamidol-370 76% 500 ML 1 ML ONE
[2020-02-19] MEDS ORDERED: cefTRIAXone\\ROCEPHIN 2 GM VIAL ONE (16:34)
[2020-02-19] MEDS ORDERED: Ketorolac Tromethamine 30 MG/ML VIAL ONE (16:36)
[2020-02-19 16:46] LABS: #Lymphocytes 1.4 thou/uL (1.20-3.40); #Monocytes 1.4 thou/uL (0.11-0.59); #Neutrophils 10.2 thou/uL (1.40-6.50); %Basophils 0.1 % (0.0-1.0); %Eosinophils 0.1 % (0.0-10.0); %Monocytes 10.7 % (0.0-10.0); %Neutrophils 77.9 % (42.0-75.0); Hemoglobin 12.8 g/dL (12.0-16.0); Mean Corpuscular HGB CONC 33.8 g/dL (32.0-36.0); Mean Corpuscular Hemoglobin 31.7 pg (27.0-31.0); Mean Corpuscular Volume 93.9 fL (78.0-98.0); Platelet Count 394 thou/uL (130-400); RBC Distribution Width 13.7 % (11.5-14.5); Red Blood Cell (RBC) Count 4.04 mill/uL (4.20-5.40)
[2020-02-19 16:48] LABS: Bacteria/HPF 3+ HPF (None Seen); Bilirubin Negative (Negative); Blood, Urine 2+ (Negative); Clarity Clear (Clear); Glucose, Urine (Dipstick) Normal (Negative); Leukocyte 250 Leu/uL (Negative); Nitrite Negative (Negative); Protein, Urine (Dipstick) 100 mg/dL (Neg-Trace); Squamous Epithelial 0-3 HPF (0-3); Urobilinogen 6 mg/dL (Less than 2); WBC/HPF 21-50 HPF (0-3)
[2020-02-19 16:55] LABS: BHCG - Serum Negative (NEGATIVE); Pregs Control Background? CLEAR/WHITE (CLR/WHITE); Pregs Control Bar Appear? YES (CONTROL BAR)
[2020-02-19 17:01] LABS: ALT (SGPT) 52 U/L (8-55); AST (SGOT) 62 U/L (5-34); Albumin 3.8 g/dL (3.5-5.0); Alkaline Phosphatase 256 U/L (40-110); Anion Gap 17 mmol/L (10-20); BUN (Urea Nitrogen) 11 mg/dL (7.0-18.7); Bilirubin, Total 1.4 mg/dL (0.2-1.2); Calc. Creatinine Clearance 0 mL/min (70-130); Calcium 9.8 mg/dL (7.8-10.44); Carbon Dioxide 24 mmol/L (22-29); Chloride 95 mmol/L (98-107); Estimated GFR-MDRD 51; Globulin 4.7 g/dL (2.4-3.5); Glucose 114 mg/dL (70-105); Potassium 3.7 mmol/L (3.5-5.1); Protein, Total 8.5 g/dL (6.0-8.3); Sodium 132 mmol/L (136-145)
[2020-02-19] MEDS ORDERED: Morphine 4 MG/ML VIAL ONE (17:41)
--- NOTE | 2020-02-19 18:54 | CT ---
CT ABDOMEN AND PELVIS WITH IV CONTRAST: 02/19/20 INDICATIONS: Bilateral flank pain. FINDINGS: Lung bases are clear. Liver, spleen, pancreas unremarkable. Review of the kidneys reveals bilateral perinephric haziness and stranding with mild renal edema, sli ghtly more pronounced on the left. No hydronephrosis. No calculus. No mass. There is hazy stranding along the left ureter. The urinary bladder is mildly distended but unremarkable in appearance. Bowel loops unremarkable. Uterus and adnexa unremarkable. IMPRESSION: Bilateral perinephric haziness and stranding with evidence of bilateral renal edema more prominent on the left. Haziness along the left ureter. Findings indicate inflammatory process. Bilateral pyelonep hritis should be considered with findings more pronounced on the left. POS: AGW
[2020-02-19] MEDS ORDERED: diphenhydrAMINE 50 MG/ML VIAL IVP PRN (21:56)
[2020-02-19 22:06] VITALS: BMI 36.8
[2020-02-19] MEDS ORDERED: Senokot S 8.6-50 MG TAB PO PRN (23:13)
[2020-02-19] MEDS ORDERED: Ondansetron ODT 4 MG TAB PO PRN (23:13)
[2020-02-19] MEDS ORDERED: Morphine 2 MG/ML SYRINGE SLOW IVP PRN (23:15)
[2020-02-19] MEDS: Sodium Chloride 0.9% 1,000 ML IV SCH (23:51)
--- NOTE | 2020-02-19 23:56 | HP ---
PRIMARY CARE PHYSICIAN: None. CHIEF COMPLAINT: Bilateral flank pain. HISTORY OF PRESENT ILLNESS: Ms. Her is a very pleasant 44-year-old female, who reports to the emergency room today after five days of symptoms of dysuria, nausea, vomiting, fever for three days. She reports that she was started on Bactrim yesterday and then she developed an itchy rash last night, which is worse today. She reports fever, nausea, vomiting, and flank pain, which is worse today and was severe enough to seek treatment. She denies having pyelonephritis or UTI before and denies having flank pain in the past. She does report that she has had some loss of appetite with some nausea, vomiting, diffuse abdominal pain, but primarily back pain and body aches. She was initially tachycardic with a white blood cell count of 13, hemoglobin 12.8, hematocrit 38, platelet count 394. Sodium 132, potassium 3.7, chloride 95, creatinine 1.15, estimated GFR 51, glucose 114, lactic acid 1.3, alkaline phosphatase 256, globulin 4.7. Urine with 40 of ketones, 2+ blood, negative nitrite, leukocyte esterase 250, white blood cell count 21-50, and 3+ bacteria. The patient had blood cultures and urine cultures done in the ER and given Rocephin 2 g with some fluids, morphine and Zofran, and currently feels a little bit better. She will be admitted to the medical unit for IV antibiotics, fluids, pain control, nausea relief. REVIEW OF SYSTEMS: The patient reports chills, fever, body aches. Reports flank pain bilateral, nausea, vomiting. Reports dysuria, frequency, urgency. All systems reviewed and are negative unless mentioned above or in the HPI. PAST MEDICAL HISTORY: Asthma, dysfunctional bleeding which required a unit of blood in September of 2019. At that time, she went upper and lower GI, which was unremarkable. Hemoglobin and hematocrit here appears stable. PAST SURGICAL HISTORY: None. SOCIAL HISTORY: Denies any alcohol or drug use. No smoking history. KNOWN ALLERGIES: None. MEDICATIONS: Current medications which have been discontinued. Bactrim DS, which she developed a rash after taking. PHYSICAL EXAMINATION: VITAL SIGNS: Blood pressure 115/67, pulse is 80, respiratory rate is 16, temp is 98.8, PO2 sats are on room air. CONSTITUTIONAL: The patient appears in no acute distress. She is alert and oriented to person, place, and time. HEENT: Head is atraumatic and normocephalic. Eyes; pupils are equal, round, and reactive to light. Extraocular muscles are intact. ENT; mouth exam is normal. Mucous membranes are moist. NECK: Normal range of motion. No tenderness. RESPIRATORY/CHEST: Breath sounds are clear. Chest expansion is equal. CARDIOVASCULAR: Regular rate and rhythm. Heart sounds are normal. ABDOMEN: Bowel sounds are normal. Mild diffuse tenderness. No guarding. No rebound. BACK: Normal inspection. Bilateral CVA tenderness. EXTREMITIES: Upper extremity normal, range of motion normal, strength is normal, radial pulses are normal. Lower extremity, normal range of motion. Motor strength is normal. Pedal pulses are normal. NEURO: The patient is oriented to person, place, and time. SKIN: She has a diffuse petechial rash on the right trunk, legs and buttock. No cellulitis. Nontender. EKG shows a normal sinus rhythm, beats per minute 95, otherwise unremarkable. The patient had a CT scan of the abdomen and pelvis, which showed bilateral perinephric haziness and stranding with evidence of bilateral renal edema, more prominent on the left haziness along the left ureter. Findings indicate insulin inflammation process. Bilateral pyelonephritis should be considered. PLAN/ASSESSMENT: 1. Bilateral pyelonephritis. The patient was given Rocephin 2 g in the ER. We will continue this daily. Fluids, normal saline at 100 mL per hour. Pain medications as needed. Zofran p.r.n. Blood cultures and urine culture are pending. 2. We will repeat labs in the a.m. 3. Deep venous thrombosis and gastrointestinal prophylaxis started. 4. Hospital course is dependent on clinical findings. Job ID: [id number]
[2020-02-20] MEDS: Acetaminophen 325 MG TAB PO PRN ×2 (01:36→10:24)
[2020-02-20] MEDS: diphenhydrAMINE 25 MG CAP PO PRN ×2 (06:00→11:48)
[2020-02-20 06:34] LABS: #Eosinphils 0.1 thou/uL (0.0-0.7); #Lymphocytes 1.4 thou/uL (1.20-3.40); #Monocytes 1.1 thou/uL (0.11-0.59); #Neutrophils 6.9 thou/uL (1.40-6.50); %Basophils 0.3 % (0.0-1.0); %Lymphocytes 14.4 % (21.0-51.0); %Monocytes 11.1 % (0.0-10.0); %Neutrophils 73.2 % (42.0-75.0); Hemoglobin 11.7 g/dL (12.0-16.0); Mean Corpuscular Hemoglobin 32.4 pg (27.0-31.0); Mean Corpuscular Volume 95.1 fL (78.0-98.0); Platelet Count 350 thou/uL (130-400); Red Blood Cell (RBC) Count 3.61 mill/uL (4.20-5.40); White Blood Cell (WBC) Count 9.4 thou/uL (4.8-10.8)
[2020-02-20 06:54] LABS: ALT (SGPT) 46 U/L (8-55); AST (SGOT) 59 U/L (5-34); Albumin 3.2 g/dL (3.5-5.0); Alkaline Phosphatase 245 U/L (40-110); Anion Gap 11 mmol/L (10-20); BUN (Urea Nitrogen) 9 mg/dL (7.0-18.7); Bilirubin, Total 0.8 mg/dL (0.2-1.2); Calc. Creatinine Clearance 117 mL/min (70-130); Calcium 8.6 mg/dL (7.8-10.44); Carbon Dioxide 22 mmol/L (22-29); Chloride 106 mmol/L (98-107); Estimated GFR-MDRD 72; Globulin 3.9 g/dL (2.4-3.5); Glucose 107 mg/dL (70-105); Potassium 3.5 mmol/L (3.5-5.1); Protein, Total 7.1 g/dL (6.0-8.3); Sodium 135 mmol/L (136-145)
[2020-02-20] MEDS: Famotidine 20 MG TAB PO SCH ×2 (09:05→20:17)
[2020-02-20] MEDS: Sodium Chloride 0.9% 1,000 ML IV SCH ×2 (09:06→20:17)
--- NOTE | 2020-02-20 14:04 | PDOC.HOSPP ---
- Subjective Encounter Date: 02/20/20 Encounter Time: 13:55 Subjective: f/u for - Objective Vital Signs & Weight: Vital Signs (12 hours) Temp Pulse Resp BP Pulse Ox 02/20/20 11:38 99.7 F H 93 18 128/82 97 02/20/20 07:48 99.2 F 79 16 114/79 100 02/20/20 04:00 98.6 F 85 18 97/65 97 Weight Weight 195 lb I&O: 02/19/20 02/20/20 02/21/20 06:59 06:59 06:59 Intake Total 1800 Balance 1800 Result Diagrams: 02/20/20 06:09 02/20/20 06:09 Additional Labs: Microbiology 02/19/20 16:32 Urine Straight Catheter Urine Culture - Preliminary Presumptive Escherichia coli 02/19/20 16:20 Venous blood - Right Arm Blood Culture - Preliminary Specimen has been received and culture in progress. No Growth to date. 02/19/20 16:20 Venous blood - Left Arm Blood Culture - Preliminary Specimen has been received and culture in progress. No Growth to date. Laboratory Tests 02/19/20 02/19/20 02/19/20 16:20 16:20 16:20 WBC 13.0 H Hgb 12.8 Sodium 132 L Creatinine 1.15 H Lactic Acid 1.3 Total Bilirubin 1.4 H AST 62 H Alkaline Phosphatase 256 H 02/20/20 06:09 WBC Hgb Sodium Creatinine Lactic Acid Total Bilirubin 0.8 AST 59 H Alkaline Phosphatase 245 H Radiology Reviewed by me: Yes (CT abd/pel - bilat perinephric edema L>R) Hospitalist ROS - Medication Medications: Active Medications Generic Name Dose Route Start Last Admin Trade Name Freq PRN Reason Stop Dose Admin Acetaminophen 650 mg 02/19/20 23:13 02/20/20 10:24 Tylenol PO 650 mg Q4H PRN Administration Headache/Fever/Mild Pain (1-3) Diphenhydramine HCl 25 mg 02/19/20 21:56 02/19/20 22:18 Benadryl IVP 02/20/20 21:57 25 mg ONE PRN Administration Itching Diphenhydramine HCl 25 mg 02/19/20 21:56 02/20/20 11:48 Benadryl PO 25 mg Q6H PRN Administration Itching & Insomnia Famotidine 20 mg 02/20/20 09:00 02/20/20 09:05 Pepcid PO 20 mg BID TYRELL Administration Sodium Chloride 1,000 mls @ 100 mls/hr 02/19/20 23:15 02/20/20 09:06 Normal Saline 0.9% IV 1,000 mls .Q10H TYRELL Administration Ondansetron HCl 4 mg 02/19/20 23:13 02/20/20 09:04 Zofran Odt PO 4 mg Q6H PRN Administration Nausea/Vomiting - Exam General Appearance: NAD, awake alert General - other findings: + diaphoresis Eye: PERRL, anicteric sclera ENT: normocephalic atraumatic, no oropharyngeal lesions Neck: supple, symmetric, no JVD, no thyromegaly, no lymphadenopathy Heart: RRR, no murmur, no gallops, no rubs, normal peripheral pulses Heart - other findings: S1, S2 Respiratory: CTAB, no wheezes, no rales, no ronchi, normal chest expansion Gastrointestinal: soft, non-tender, non-distended, normal bowel sounds Gastrointestinal - other findings: + CVA TTP L>R Extremities: no cyanosis, no clubbing, no edema Skin: normal turgor, no lesions Neurological: cranial nerve grossly intact, no new deficit Musculoskeletal: normal tone, normal strength Psychiatric: normal affect, A&O x 3 Hosp A/P (1) Pyelonephritis Code(s): N12 - TUBULO-INTERSTITIAL NEPHRITIS, NOT SPCF ACUTE OR CHRONIC Status: Acute Plan: Continue Rocephin, add Levaquin 750mg IV daily, continue IVF's, add Toradol 30mg IV q6h (2) E. coli UTI Code(s): N39.0 - URINARY TRACT INFECTION, SITE NOT SPECIFIED; B96.20 - UNSP ESCHERICHIA COLI THE CAUSE OF DISEASES CLASSD ELSWHR Status: Acute Plan: Continue Rocephin, await final sensitivities (3) RUBY (acute kidney injury) Code(s): N17.9 - ACUTE KIDNEY FAILURE, UNSPECIFIED Status: Acute Plan: Improved, continue IVF's, avoid nephrotoxic meds and limit contrast (4) Transaminitis Code(s): R74.0 - NONSPEC ELEV OF LEVELS OF TRANSAMNS & LACTIC ACID DEHYDRGNSE Status: Chronic Plan: Appears to be chronic, likely due to fatty infiltration, serial monitoring - Plan continue antibiotics, psychologist social, out of bed/ambulate, DVT proph w/SCDs Stable overall Continue IVF's Add Toradol 30mg IV q6h Add Levaquin 750mg IV daily Continue Rocephin AM lab: CMP, CBC
[2020-02-20] MEDS ORDERED: Ketorolac Tromethamine 30 MG/ML VIAL IVP SCH (14:15)
[2020-02-20] MEDS: cefTRIAXone\\ROCEPHIN 2 GM in Sodium Chloride 0.9% 100 ML IVPB SCH (14:48)
[2020-02-20] MEDS: Ketorolac Tromethamine 30 MG/ML VIAL IVP SCH (20:17)
[2020-02-21] MEDS: Ketorolac Tromethamine 30 MG/ML VIAL IVP SCH ×4 (01:34→19:25)
[2020-02-21 06:13] LABS: ALT (SGPT) 58 U/L (8-55); AST (SGOT) 42 U/L (5-34); Alkaline Phosphatase 267 U/L (40-110); Anion Gap 12 mmol/L (10-20); BUN (Urea Nitrogen) 7 mg/dL (7.0-18.7); Bilirubin, Total 0.4 mg/dL (0.2-1.2); Calc. Creatinine Clearance 139 mL/min (70-130); Calcium 8.6 mg/dL (7.8-10.44); Carbon Dioxide 20 mmol/L (22-29); Chloride 110 mmol/L (98-107); Estimated GFR-MDRD 88; Globulin 3.6 g/dL (2.4-3.5); Glucose 97 mg/dL (70-105); Potassium 3.7 mmol/L (3.5-5.1); Protein, Total 6.6 g/dL (6.0-8.3); Sodium 138 mmol/L (136-145)
[2020-02-21 06:29] LABS: Hemoglobin 11.8 g/dL (12.0-16.0); Mean Corpuscular HGB CONC 32.6 g/dL (32.0-36.0); Mean Corpuscular Volume 95.1 fL (78.0-98.0); RBC Distribution Width 14.1 % (11.5-14.5); Red Blood Cell (RBC) Count 3.81 mill/uL (4.20-5.40)
[2020-02-21 06:34] LABS: Band 11 % (5-11); Eosinophils 4 % (0-10); Lymphocytes 21 % (21-51); MDiff Complete? YES; Mean Platelet Volume 7.2 fL (7.4-10.4); Monocytes 8 % (0-10); Neutrophil 56 % (42-75); Platelet Count 366 thou/uL (130-400); White Blood Cell (WBC) Count 7.4 thou/uL (4.8-10.8)
[2020-02-21] MEDS: Famotidine 20 MG TAB PO SCH ×2 (07:36→19:24)
[2020-02-21] MEDS: diphenhydrAMINE 25 MG CAP PO PRN (07:36)
[2020-02-21] MEDS: Sodium Chloride 0.9% 1,000 ML IV SCH ×2 (07:37→19:06)
--- NOTE | 2020-02-21 12:08 | PDOC.HOSPP ---
- Subjective Encounter Date: 02/21/20 Encounter Time: 12:00 Subjective: f/u for pyelonephritis on current Rocephin/Levaquin. Pt states she feels much better today. Less flank pain. - Objective Vital Signs & Weight: Vital Signs (12 hours) Temp Pulse Resp BP Pulse Ox 02/21/20 10:58 98.2 F 76 18 118/80 100 02/21/20 07:08 98.5 F 83 20 109/77 100 02/21/20 01:26 95 Weight Weight 195 lb I&O: 02/20/20 02/21/20 02/22/20 06:59 06:59 06:59 Intake Total 1800 Balance 1800 Result Diagrams: 02/21/20 05:31 02/21/20 05:31 Additional Labs: Microbiology 02/19/20 16:32 Urine Straight Catheter Urine Culture - Final Escherichia coli 02/19/20 16:32 Urine Straight Catheter Urine Culture - Preliminary Presumptive Escherichia coli 02/19/20 16:20 Venous blood - Right Arm Blood Culture - Preliminary Specimen has been received and culture in progress. No Growth to date. 02/19/20 16:20 Venous blood - Right Arm Blood Culture - Preliminary NO GROWTH AT 48 HOURS 02/19/20 16:20 Venous blood - Left Arm Blood Culture - Preliminary Specimen has been received and culture in progress. No Growth to date. 02/19/20 16:20 Venous blood - Left Arm Blood Culture - Preliminary NO GROWTH AT 48 HOURS Laboratory Tests 02/19/20 02/19/20 02/19/20 16:20 16:20 16:20 WBC 13.0 H Hgb 12.8 Sodium 132 L Creatinine 1.15 H Lactic Acid 1.3 Total Bilirubin 1.4 H AST 62 H Alkaline Phosphatase 256 H 02/20/20 06:09 WBC Hgb Sodium Creatinine Lactic Acid Total Bilirubin 0.8 AST 59 H Alkaline Phosphatase 245 H Hospitalist ROS - Medication Medications: Active Medications Generic Name Dose Route Start Last Admin Trade Name Freq PRN Reason Stop Dose Admin Acetaminophen 650 mg 02/19/20 23:13 02/20/20 10:24 Tylenol PO 650 mg Q4H PRN Administration Headache/Fever/Mild Pain (1-3) Diphenhydramine HCl 25 mg 02/19/20 21:56 02/21/20 07:36 Benadryl PO 25 mg Q6H PRN Administration Itching & Insomnia Famotidine 20 mg 02/20/20 09:00 02/21/20 07:36 Pepcid PO 20 mg BID TYRELL Administration Sodium Chloride 1,000 mls @ 100 mls/hr 02/19/20 23:15 02/21/20 07:37 Normal Saline 0.9% IV 1,000 mls .Q10H TYRELL Administration Ceftriaxone Sodium 2 gm/ 100 mls @ 200 mls/hr 02/20/20 15:00 02/20/20 14:48 Sodium Chloride IVPB 100 mls 1500 TYRELL Administration Levofloxacin 750 mg/ Device 150 mls @ 100 mls/hr 02/20/20 14:00 02/20/20 14: 48 IVPB 150 mls 1400 TYRELL Administration Ketorolac Tromethamine 30 mg 02/20/20 20:00 02/21/20 07:36 Toradol IVP 02/25/20 20:01 30 mg 0200,0800,1400,2000 TYRELL Administration Ondansetron HCl 4 mg 02/19/20 23:13 02/20/20 09:04 Zofran Odt PO 4 mg Q6H PRN Administration Nausea/Vomiting - Exam General Appearance: NAD, awake alert Eye: PERRL, anicteric sclera ENT: normocephalic atraumatic, no oropharyngeal lesions Neck: supple, symmetric, no JVD, no thyromegaly, no lymphadenopathy Heart: RRR, no murmur, no gallops, no rubs, normal peripheral pulses Respiratory: CTAB, no wheezes, no rales, no ronchi, normal chest expansion Gastrointestinal: soft, non-tender, non-distended, normal bowel sounds, no palpable masses Gastrointestinal - other findings: mild L CVA tenderness Extremities: no cyanosis, no clubbing, no edema Skin: normal turgor, no lesions Neurological: cranial nerve grossly intact, no new deficit Musculoskeletal: normal tone, normal strength, no muscle wasting Psychiatric: normal affect, A&O x 3 Hosp A/P (1) Pyelonephritis Code(s): N12 - TUBULO-INTERSTITIAL NEPHRITIS, NOT SPCF ACUTE OR CHRONIC Status: Acute Plan: Continue Rocephin another 24h, d/c Levaquin, continue IVF's (2) E. 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
[2020-02-21] MEDS: cefTRIAXone\\ROCEPHIN 2 GM in Sodium Chloride 0.9% 100 ML IVPB SCH (15:03)
[2020-02-22] MEDS: Ketorolac Tromethamine 30 MG/ML VIAL IVP SCH ×3 (01:31→13:43)
[2020-02-22] MEDS: Sodium Chloride 0.9% 1,000 ML IV SCH ×2 (01:31→13:44)
[2020-02-22 07:33] VITALS: BP 128/74; TEMP 98.2
[2020-02-22] MEDS: Famotidine 20 MG TAB PO SCH (07:53)
--- NOTE | 2020-02-22 10:31 | DIS ---
DATE OF ADMISSION: 02/19/2020 DATE OF DISCHARGE: 02/22/2020 DISCHARGE DIAGNOSES: 1. Acute pyelonephritis, resolving. 2. Escherichia coli urinary tract infection, improved. 3. Acute kidney injury, resolved. 4. Transaminitis, likely due to fatty liver. CONSULTATIONS: None. PERTINENT LABORATORY AND X-RAY FINDINGS: Sodium ranged between 132 to 138. Creatinine ranged between 0.72 to 1.15. Estimated GFR ranged between 51 to 88. Lactic acid level 1.3. AST ranged between 42 to 62, ALT ranged between 46 to 58, alkaline phosphatase ranged between 245 to 267. Serum beta-hCG negative 02/19/2020. CBC showed a white blood cell count ranging between 7.4 to 13.0. Blood cultures x2 dated 02/19/2020 showed no growth at 48 hours. Urine culture dated 02/19/2020 showed 25,000 to 50,000 colonies of E coli species. CT of the abdomen and pelvis dated 02/19/2020 showed bilateral perinephric stranding, left greater than right. Findings consistent with pyelonephritis. HOSPITAL COURSE: The patient was initially admitted after presenting with bilateral flank pain with urinalysis concerning for infectious process. The patient underwent CT of the abdomen and pelvis showing bilateral perinephric stranding consistent with pyelonephritis. The patient was initiated on IV Rocephin and placed on IV fluids. The patient did receive Toradol for pain control and continued on IV fluids throughout the hospital course. The patient did rapidly clinically improved with IV antibiotic therapy with resolution of leukocytosis and remaining afebrile. Urine culture did reveal E coli species sensitive to Rocephin and quinolones. The patient transitioned to Levaquin 750 mg daily and will complete a total 10-day course of antibiotics after discharge. I have examined the patient at the time of discharge and discussed the followup instructions. The patient verbalizes understanding and agreement and ready for discharge on 02/22/2020. DISCHARGE MEDICATIONS: 1. Levaquin 750 mg p.o. daily x7 days. 2. Ibuprofen 400 mg p.o. q.6 hours p.r.n. FOLLOWUP: The patient may follow up with the [facility] in 7 to 10 days after discharge. CONDITION ON DISCHARGE: Stable. ACTIVITY: Ad-farhana. DIET: Regular. CODE STATUS: Full. DISPOSITION: Home, 02/22/2020. TIME SPENT: Total time preparing and coordinating discharge, 32 minutes. Job ID: [id number]
== END 2020-02-22 14:45 | disposition home or self-care (01) | DRG 690 ==
LOC: ERS 14:29 → OBSVTOIN 19:32 → T4-B 19:32
PROVIDERS: ADMIT Internal Medicine; ATTEND Internal Medicine
DX: N10 Acute pyelonephritis (principal); B96.20 Unspecified Escherichia coli [E. coli] as the cause of diseases classified elsewhere; J45.909 Unspecified asthma, uncomplicated; N17.9 Acute kidney failure, unspecified; K76.0 Fatty (change of) liver, not elsewhere classified
CPT/HCPCS: 36415; 74177; 80053; 81003; 81015; 83605; 84703; 85007; 85025; 85027; 87040; 87077; 87086; 87186; 93005; 96361; 96365; 96375; A4353; J0696; J1200; J1885; J1956; J2270; J3490; Q0162; Q0163; Q9967

== ENCOUNTER 2020-04-19 14:32 | Emergency (ER) | payer SELFPAY ==
[2020-04-19 15:06] LABS: #Basophils 0.1 thou/uL (0.0-0.2); #Eosinphils 0.2 thou/uL (0.0-0.7); #Lymphocytes 2.6 thou/uL (1.20-3.40); #Monocytes 0.6 thou/uL (0.11-0.59); #Neutrophils 5.6 thou/uL (1.40-6.50); %Basophils 0.9 % (0.0-1.0); %Lymphocytes 28.9 % (21.0-51.0); %Monocytes 6.1 % (0.0-10.0); %Neutrophils 62.2 % (42.0-75.0); Hemoglobin 7.8 g/dL (12.0-16.0); Mean Corpuscular HGB CONC 33.7 g/dL (32.0-36.0); Mean Corpuscular Volume 88.9 fL (78.0-98.0); Mean Platelet Volume 7.3 fL (7.4-10.4); Platelet Count 477 thou/uL (130-400); RBC Distribution Width 13.6 % (11.5-14.5); Red Blood Cell (RBC) Count 2.62 mill/uL (4.20-5.40)
[2020-04-19 15:12] LABS: PTT 26.3 sec (22.9-36.1); Prothrombin Time 12.9 sec (12.0-14.7)
[2020-04-19 15:28] LABS: ALT (SGPT) 13 U/L (8-55); AST (SGOT) 14 U/L (5-34); Albumin 3.9 g/dL (3.5-5.0); Alkaline Phosphatase 108 U/L (40-110); Anion Gap 13 mmol/L (10-20); BUN (Urea Nitrogen) 8 mg/dL (7.0-18.7); Bilirubin, Total 0.4 mg/dL (0.2-1.2); Calc. Creatinine Clearance 0 mL/min (70-130); Calcium 8.4 mg/dL (7.8-10.44); Carbon Dioxide 22 mmol/L (22-29); Chloride 106 mmol/L (98-107); Estimated GFR-MDRD 78; Globulin 3.2 g/dL (2.4-3.5); Glucose 87 mg/dL (70-105); Potassium 3.6 mmol/L (3.5-5.1); Protein, Total 7.1 g/dL (6.0-8.3); Sodium 137 mmol/L (136-145)
[2020-04-19] MEDS ORDERED: Morphine 4 MG/ML VIAL ONE (15:56)
[2020-04-19] MEDS ORDERED: Pantoprazole 40 MG VIAL ONE (15:56)
[2020-04-19] MEDS ORDERED: Ondansetron PF 4 MG/2 ML Vial ONE (15:56)
[2020-04-19] MEDS ORDERED: Pantoprazole 80 MG, Admixture Fee 1 EACH in Sodium Chloride 0.9% 100 ML IVPB SCH (16:00)
[2020-04-19 16:13] LABS: BHCG - Serum Negative (NEGATIVE); Pregs Control Background? CLEAR/WHITE (CLR/WHITE); Pregs Control Bar Appear? YES (CONTROL BAR)
== END 2020-04-19 19:54 | disposition home or self-care (01) ==
LOC: ERS 14:32
DX: K92.2 Gastrointestinal hemorrhage, unspecified (principal); K64.4 Residual hemorrhoidal skin tags; D64.9 Anemia, unspecified; J45.909 Unspecified asthma, uncomplicated
CPT/HCPCS: 36415; 36430; 80053; 82274; 84703; 85025; 85610; 85730; 86850; 86900; 86901; 96374; 96375; C9113; J2270; J2405; J3490; P9016

== ENCOUNTER 2021-01-25 15:59 | Emergency (ER) | payer SELFPAY ==
[2021-01-25 16:55] LABS: #Basophils 0.1 thou/uL (0.0-0.2); #Eosinphils 0.1 thou/uL (0.0-0.7); #Lymphocytes 2.5 thou/uL (1.20-3.40); #Monocytes 0.5 thou/uL (0.11-0.59); #Neutrophils 6.3 thou/uL (1.40-6.50); %Basophils 0.7 % (0.0-1.0); %Eosinophils 1.3 % (0.0-10.0); %Lymphocytes 26.1 % (21.0-51.0); %Monocytes 5.3 % (0.0-10.0); %Neutrophils 66.7 % (42.0-75.0); Hemoglobin 9.3 g/dL (12.0-16.0); Mean Corpuscular HGB CONC 33.1 g/dL (32.0-36.0); Mean Corpuscular Hemoglobin 29.5 pg (27.0-31.0); Mean Corpuscular Volume 89.1 fL (78.0-98.0); Mean Platelet Volume 7.4 fL (7.4-10.4); Platelet Count 482 thou/uL (130-400); RBC Distribution Width 13.8 % (11.5-14.5); Red Blood Cell (RBC) Count 3.14 mill/uL (4.20-5.40); White Blood Cell (WBC) Count 9.4 thou/uL (4.8-10.8)
[2021-01-25 17:14] LABS: ALT (SGPT) 12 U/L (8-55); AST (SGOT) 12 U/L (5-34); Albumin 3.9 g/dL (3.5-5.0); Alkaline Phosphatase 111 U/L (40-110); Anion Gap 14 mmol/L (10-20); BUN (Urea Nitrogen) 10 mg/dL (7.0-18.7); Bilirubin, Total 0.4 mg/dL (0.2-1.2); Calc. Creatinine Clearance 0 mL/min (70-130); Calcium 8.4 mg/dL (7.8-10.44); Carbon Dioxide 20 mmol/L (22-29); Chloride 107 mmol/L (98-107); Globulin 3.2 g/dL (2.4-3.5); Glucose 166 mg/dL (70-105); Potassium 3.5 mmol/L (3.5-5.1); Protein, Total 7.1 g/dL (6.0-8.3); Sodium 137 mmol/L (136-145)
[2021-01-25] MEDS ORDERED: Acetaminophen 500 MG TAB ONE (18:36)
== END 2021-01-25 18:46 | disposition home or self-care (01) ==
LOC: ERS 15:59
DX: K64.4 Residual hemorrhoidal skin tags (principal); J45.909 Unspecified asthma, uncomplicated
CPT/HCPCS: 36415; 80053; 82270; 85025; 86850; 86900; 86901; 99283